=== PATIENT | female | born 1970 | race Caucasian/White ===

== ENCOUNTER 2017-10-17 10:58 | Emergency (ER) | payer MEDICARE, MEDICAID ==
[~2017-10-17] VITALS: Ht 152.4 cm; Wt 59.0 kg
[~2017-10-17 10:58] MED LIST: ANTACID DOUBLE360 M1; APAP500; BACLOFEN20 MG; BENADRYL25 MG PO; BENGAY85 GM; BIOFREEZE PAI3840 GM; CALCIUM 600 +1 EAC5; COLACE100 MG; IBUPROFEN 800800 M1; INDERAL 20 MG T20 M1; LORATIDINE 10 M10 M1; LORTAB 5 MG/5001 TA1; MAALOX SUSPENS148 ML; MIRALAX255 GM; NEXIUM40 MG; NOLVADEX20 MG; NORVASC10 MG; OXYBUTYNIN 5 MG5 M1; PRENATAL; ROBITUSSIN DM118 ML; TRIAMTERENE-HC1 EAC1; VICODIN 5-5001 EACH PO; ZANAFLEX2 M1
[2017-10-17] MEDS ORDERED: TRIAMCINOLONE A80 G2 TOP (11:31)
[2017-10-17] MEDS ORDERED: PREPLUS CA-FE1 EACH PO (11:31)
[2017-10-17] MEDS ORDERED: HYDROCODONE-AP1 EAC6 PO (13:57)
[2017-10-17 14:03] VITALS: BP 115/77
== END 2017-10-17 14:03 | disposition home or self-care (01) ==
LOC: M.ERS 10:58
DX: M79.672 Pain in left foot (principal); K21.9 Gastro-esophageal reflux disease without esophagitis; I10 Essential (primary) hypertension; G80.9 Cerebral palsy, unspecified; Z85.3 Personal history of malignant neoplasm of breast; Z88.1 Allergy status to other antibiotic agents; Z88.0 Allergy status to penicillin; Z88.5 Allergy status to narcotic agent; Z88.8 Allergy status to other drugs, medicaments and biological substances